=== PATIENT | male | born 1950 | race Caucasian/White ===

== ENCOUNTER 2017-01-18 05:48 | Day surgery (SDC) | payer MEDICARE, OTHER ==
[2017-01-17 11:24] LABS: HEMATOCRIT 47.7 % (42.0-54.0); HEMOGLOBIN 16.1 g/dL (13.5-17.5); MCH 30.6 pg (26.0-34.0); MCHC 33.8 g/dL (31.0-37.0); MCV 90.7 fL (80.0-100.0); MEAN PLATELET VOLUME 10.9 fL (7.4-10.4); RBC 5.26 10x6/uL (4.20-6.10); RDW 13.5 % (11.5-14.5); WBC 8.7 10x3/uL (4.8-10.8)
[2017-01-17 11:37] LABS: ANION GAP 10.7 mmol/L (8-16); CARBON DIOXIDE 28.3 mmol/L (21.0-32.0); CREATININE - SERUM 1.2 mg/dL (0.6-1.3)
[~2017-01-18] VITALS: Ht 180.3 cm; Wt 131.1 kg
[~2017-01-18 05:48] MED LIST: BAYER CHEWABLE81 MG PO; DIOVAN HCT 160/1 TAB PO; FISH OIL 1,2001 CAP PO; NIASPAN1000 MG PO; NORVASC5 MG PO; RED YEAST RICE600 MG PO; ZYLOPRIM100 MG PO
[2017-01-18 06:54] VITALS: BP 114/75; Ht 180.3 cm; Wt 131.1 kg
--- NOTE | 2017-01-18 15:09 | NUR ---
1130--PT VOIDS WITHOUT DIFFICULTY, IV DC'D. SMITHA BARBOSA 1145--DISCHARGE INSTRUCTIONS GIVEN, PT VERBALIZES UNDERSTANDING. PT OFF UNIT VIA WC. SMITHA BARBOSA
--- NOTE | 2017-01-22 12:45 | OP ---
PATIENT NAME: MARCO LOPEZ MEDICAL RECORD: [id number] [facility] DATE: SURGEON: SAGE DREW MD DATE OF OPERATION: 01/18/2017 SURGEON: Sage Drew MD ANESTHESIA: General anesthesia by Jean Powell CRNA. DIAGNOSIS: Left hydrocele. FINDINGS: Left hydrocele. PROCEDURE: Left hydrocelectomy Jaboulay procedure. ESTIMATED BLOOD LOSS: Minimal. COMPLICATIONS: None. CLINICAL HISTORY: This is a 66-year-old male, who has had a left hydrocele for over 1 year. During the course of this year, it has been progressively growing larger in size and now it has become a bother to him as he cannot walk without knocking on it. He wishes to have it removed. The risks of infection, hematoma formation, and hydrocele recurrence were explained to the patient. He has a past medical history of hypertension, hypercholesterolemia, and atrial fibrillation with a slow ventricular response. He has had a previous vasectomy. HE IS ALLERGIC TO CARAC. He was given 2 grams of Ancef IV bonderizer operator to the OR. DESCRIPTION OF PROCEDURE: The patient was given induction of general anesthesia. He was placed in supine position. The scrotum was shaved. A midline scrotal incision was made with a #15 blade. We then went down to the dartos fascia using a Bovie. The tunica vaginalis of the scrotum was then incised with the Bovie and the incision was lengthened using the Metzenbaum scissors. The hydrocele fluid was then drained entirely. Allis clamps were placed on the tunica vaginalis and the excess redundant tunica vaginalis was excised using the Bovie. This was sent to pathology as the hydrocele sac. The remaining flaps of the tunica vaginalis were then reapproximated behind the cord using a running 3-0 Vicryl. Any bleeding that we could see of venous nature was completely cauterized. The lateral sulcus of the testicle was identified and the testicle was placed back into his left hemiscrotum in the correct orientation. The dartos fascia was reapproximated using running 3-0 Vicryl. The skin was closed using simple interrupted 4-0 Monocryl. Fluffs and mesh panties were given to the patient. The patient will be going home with a script for Tylenol #3 times 20 tablets with no refills and I will see him in followup in 1-2 weeks' time. TRANSINT:[id number] Voice Confirmation ID: [id number] DOCUMENT ID: [id number] OPERATIVE REPORT [id number] MARCO LOPEZ ROBERT S MD at 1245 CC: [id number] DICTATION DATE: 01/18/1724 SPD TECH: 01/18/17 1647 [facility] 01/18/[address] [id number]
== END 2017-01-18 11:45 | disposition home or self-care (01) ==
LOC: D.OPS 05:48 → D.PAN 08:00 → D.OPS 11:45
PROVIDERS: Anesthesiology
DX: N43.2 Other hydrocele (principal); I10 Essential (primary) hypertension; E78.00 Pure hypercholesterolemia, unspecified; I48.91 Unspecified atrial fibrillation; Z88.8 Allergy status to other drugs, medicaments and biological substances